=== PATIENT | male | born 1950 | race Caucasian/White ===

== ENCOUNTER 2017-10-28 14:31 | Emergency (ER) | payer MEDICARE, OTHER ==
[~2017-10-28] VITALS: Ht 193 cm; Wt 93.0 kg
[~2017-10-28 14:31] MED LIST: VALA500
== END 2017-10-28 15:54 | disposition home or self-care (01) ==
LOC: ER 14:31
DX: S61.011A Laceration without foreign body of right thumb without damage to nail, initial encounter (principal); Z87.891 Personal history of nicotine dependence; W26.8XXA Contact with other sharp object(s), not elsewhere classified, initial encounter
CPT/HCPCS: 12002; 90471; 90714; 99283

== ENCOUNTER 2017-12-05 07:15 | Day surgery (SDC) | payer MEDICARE, OTHER ==
[~2017-12-05] VITALS: Ht 185.4 cm; Wt 93.0 kg
[~2017-12-05 07:15] MED LIST changes: +Tylenol325 MG PO; +thyroid med
[2017-12-06 04:10] LABS: BASOPHILS ABSOLUTE AUTO 0.01 K/mm3 (0.00-0.23); BASOPHILS PERCENT AUTO 0 % (0-2); EOSINOPHILS ABSOLUTE AUTO 0.01 K/mm3 (0.00-0.68); EOSINOPHILS PERCENT AUTO 0 % (0-6); Hematocrit 40.6 % (37.0-53.0); Hemoglobin 14.1 g/dL (13.5-17.5); IMMATURE GRAN ABSOLUTE AUTO 0.05 K/mm3 (0.00-0.10); IMMATURE GRAN PERCENT AUTO 0 % (0-1); LYMPHOCYTES ABSOLUTE AUTO 1.31 K/mm3 (0.84-5.20); LYMPHOCYTES PERCENT AUTO 9 % (21-46); MONOCYTES ABSOLUTE AUTO 1.19 K/mm3 (0.16-1.47); MONOCYTES PERCENT AUTO 8 % (4-13); Mean Corpuscular HGB 29.5 pg (26.0-34.0); Mean Corpuscular HGB Conc 34.7 g/dL (31.5-36.5); Mean Corpuscular Volume 85 fL (80-100); Mean Platelet Volume 9.6 fL (9.1-12.4); NEUTROPHILS PERCENT AUTO 83 % (41-73); Platelet Count 264 K/mm3 (150-400); RDW Coefficient Variation 12.5 % (11.7-14.2); RDW Standard Deviation 38.5 fL (35.1-46.3); Red Blood Cell Count 4.78 M/mm3 (4.30-5.90); White Blood Cell Count 14.67 K/mm3 (4.00-11.30)
[2017-12-06 04:27] LABS: Anion Gap 8 mmol/L (6-16); Blood Urea Nitrogen 19 mg/dL (8-24); CO2, Blood 25 mmol/L (21-32); Calcium, Blood 8.7 mg/dL (8.5-10.1); Chloride, Blood 107 mmol/L (98-108); Glomerular Filtration Rate >60 (60-); Glucose, Blood 127 mg/dL (70-99); Magnesium, Blood 2.2 mg/dL (1.6-2.4); Potassium, Blood 4.4 mmol/L (3.5-5.5); Sodium, Blood 140 mmol/L (136-145)
[2017-12-06] MEDS ORDERED: ASPI325EC PO (09:23)
[2017-12-06] MEDS ORDERED: ROXICODONE5 MG PO (09:24)
== END 2017-12-06 11:45 | disposition home or self-care (01) ==
LOC: PRE IP 07:15 → ORSCMMR 07:15 → SURS 07:15 → PRE IP 10:30 → SURS 13:12 → PRE IP 14:00 → EDSTATUS 14:00 → SURS 12-06 11:45 → ORSCMMR 12-06 11:45
PROVIDERS: Orthopaedic Surgery
PROC: 0SRC0J9 Replacement of Right Knee Joint with Synthetic Substitute, Cemented, Open Approach (ICD-10-PCS; principal; 2017-12-06)
DX: M17.11 Unilateral primary osteoarthritis, right knee (principal)
CPT/HCPCS: 36415; 73560-RT; 80048; 83735; 85025; 88300; 97110; 97116; 97161; 97530; C1713; C1776; G8978; G8979; J0171; J0690; J0735; J1100; J1885; J2250; J2405; J2795; J7120

== ENCOUNTER 2018-02-13 08:21 | Emergency (ER) | payer MEDICARE, OTHER ==
[~2018-02-13] VITALS: Ht 188 cm; Wt 86.2 kg
[~2018-02-13 08:21] MED LIST changes: +ASPI325EC PO; +ROXICODONE5 MG PO
[2018-02-13 09:08] LABS: BASOPHILS ABSOLUTE AUTO 0.03 K/mm3 (0.00-0.23); BASOPHILS PERCENT AUTO 0 % (0-2); EOSINOPHILS ABSOLUTE AUTO 0.22 K/mm3 (0.00-0.68); EOSINOPHILS PERCENT AUTO 3 % (0-6); Hematocrit 43.9 % (37.0-53.0); IMMATURE GRAN ABSOLUTE AUTO 0.03 K/mm3 (0.00-0.10); IMMATURE GRAN PERCENT AUTO 0 % (0-1); LYMPHOCYTES ABSOLUTE AUTO 1.98 K/mm3 (0.84-5.20); LYMPHOCYTES PERCENT AUTO 23 % (21-46); MONOCYTES PERCENT AUTO 14 % (4-13); Mean Corpuscular HGB 29.4 pg (26.0-34.0); Mean Corpuscular HGB Conc 34.2 g/dL (31.5-36.5); Mean Corpuscular Volume 86 fL (80-100); Mean Platelet Volume 9.1 fL (9.1-12.4); NEUTROPHILS ABSOLUTE AUTO 5.02 K/mm3 (1.96-9.15); NEUTROPHILS PERCENT AUTO 59 % (41-73); Platelet Count 309 K/mm3 (150-400); RDW Coefficient Variation 13.1 % (11.7-14.2); RDW Standard Deviation 41.1 fL (35.1-46.3); Red Blood Cell Count 5.11 M/mm3 (4.30-5.90); White Blood Cell Count 8.48 K/mm3 (4.00-11.30)
[2018-02-13 09:22] LABS: Alanine Aminotransfer (ALT/SGP 62 U/L (12-78); Albumin/Globulin Ratio 1.2 (0.8-1.8); Alk Phos 65 U/L (50-136); Anion Gap 10 mmol/L (6-16); Aspartate Aminotrans (AST/SGOT 36 U/L (12-37); Bilirubin, Total 0.5 mg/dL (0.1-1.0); Blood Urea Nitrogen 25 mg/dL (8-24); Bun/Creatinine Ratio 27.6 (12.0-20.0); CO2, Blood 24 mmol/L (21-32); Calcium, Blood 8.9 mg/dL (8.5-10.1); Chloride, Blood 108 mmol/L (98-108); Creatinine, Blood 0.91 mg/dL (0.60-1.20); Globulin, Blood 3.2 g/dL (2.2-4.0); Glomerular Filtration Rate >60 (60-); Glucose, Blood 110 mg/dL (70-99); Magnesium, Blood 2.1 mg/dL (1.6-2.4); Potassium, Blood 3.7 mmol/L (3.5-5.5); Sodium, Blood 142 mmol/L (136-145); Total Protein, Blood 7.2 g/dL (6.4-8.2); Troponin I 0.018 ng/mL (0.000-0.040)
[2018-02-13 09:26] LABS: Thyroid Stimulating Hormone <0.005 uIU/mL (0.360-4.800)
[2018-02-13 11:43] LABS: Free Thyroxine 1.71 ng/dL (0.70-1.60)
== END 2018-02-13 14:27 | disposition home or self-care (01) ==
LOC: ER 08:21
PROVIDERS: Emergency Medicine
DX: I48.91 Unspecified atrial fibrillation (principal); E05.90 Thyrotoxicosis, unspecified without thyrotoxic crisis or storm; Z79.82 Long term (current) use of aspirin; Z87.891 Personal history of nicotine dependence
CPT/HCPCS: 36415; 71046; 80053; 83735; 83880; 84439; 84443; 84484; 85025; 92960; 93005; 93010; 93306; 96360; 96361; 99285-25; J7120

== ENCOUNTER 2019-12-28 12:47 | Emergency (ER) | payer MEDICARE, OTHER ==
[~2019-12-28] VITALS: Ht 188 cm; Wt 94.8 kg
[2019-12-28] MEDS ORDERED: LIDO700A20 TOP (15:07)
[2019-12-28] MEDS ORDERED: Robaxin-750750 MG PO (15:07)
== END 2019-12-28 13:39 | disposition left against medical advice (07) ==
LOC: ER 12:47
DX: Z53.21 Procedure and treatment not carried out due to patient leaving prior to being seen by health care provider (principal)

== ENCOUNTER 2019-12-28 14:24 | Emergency (ER) | payer MEDICARE, OTHER ==
[~2019-12-28] VITALS: Ht 188 cm; Wt 94.8 kg
[2019-12-28] MEDS ORDERED: Robaxin-750750 MG PO (15:07)
[2019-12-28] MEDS ORDERED: LIDO700A20 TOP (15:07)
== END 2019-12-28 16:02 | disposition home or self-care (01) ==
LOC: ER 14:24
DX: S39.012A Strain of muscle, fascia and tendon of lower back, initial encounter (principal); X58.XXXA Exposure to other specified factors, initial encounter; Y93.89 Activity, other specified
CPT/HCPCS: 96372; 99283-25; J1885

== ENCOUNTER 2020-03-27 07:28 | Day surgery (SDC) | payer MEDICARE, OTHER ==
[~2020-03-27] VITALS: Ht 188 cm; Wt 92.5 kg
[~2020-03-27 07:28] MED LIST changes: +ACET325; +ACYC400; +FLUT.05NI; +KELP150 MC1; +LIDO700A20 TOP; +Robaxin-750750 MG PO; +Saw Palmetto160 MG; +TUMERIC
== END 2020-03-27 10:15 | disposition home or self-care (01) ==
LOC: ORSCSDS 07:28
PROVIDERS: Anesthesiology
PROC: 3E0R33Z Introduction of Anti-inflammatory into Spinal Canal, Percutaneous Approach (ICD-10-PCS; principal; 2020-03-27 08:30)
DX: M51.16 Intervertebral disc disorders with radiculopathy, lumbar region (principal); I48.0 Paroxysmal atrial fibrillation; Z87.891 Personal history of nicotine dependence; Z79.899 Other long term (current) drug therapy
CPT/HCPCS: J1040

== ENCOUNTER 2020-05-28 09:57 | Day surgery (SDC) | payer MEDICARE, OTHER ==
[~2020-05-28] VITALS: Ht 188 cm; Wt 95.1 kg
[~2020-05-28 09:57] MED LIST changes: +TUMERIC PO
== END 2020-05-28 11:30 | disposition home or self-care (01) ==
LOC: ORSCSDS 09:57
PROVIDERS: Anesthesiology
PROC: 3E0R33Z Introduction of Anti-inflammatory into Spinal Canal, Percutaneous Approach (ICD-10-PCS; principal; 2020-05-28 11:00)
DX: M51.16 Intervertebral disc disorders with radiculopathy, lumbar region (principal); I48.0 Paroxysmal atrial fibrillation; Z79.899 Other long term (current) drug therapy
CPT/HCPCS: J1040

== ENCOUNTER 2020-07-10 10:39 | Day surgery (SDC) | payer MEDICARE, OTHER ==
[~2020-07-10] VITALS: Ht 185.4 cm; Wt 93.0 kg
[2020-07-10] MEDS ORDERED: FLUT.05NI (11:01)
[2020-07-10] MEDS ORDERED: ACYC800 PO (11:01)
== END 2020-07-10 11:50 | disposition home or self-care (01) ==
LOC: ORSCSDS 10:39
PROVIDERS: Anesthesiology
PROC: 3E0R33Z Introduction of Anti-inflammatory into Spinal Canal, Percutaneous Approach (ICD-10-PCS; principal; 2020-07-10 11:45)
DX: M51.16 Intervertebral disc disorders with radiculopathy, lumbar region (principal); M48.061 Spinal stenosis, lumbar region without neurogenic claudication; I48.0 Paroxysmal atrial fibrillation
CPT/HCPCS: J1040

== ENCOUNTER 2021-01-24 03:18 | Emergency (ER) | payer MEDICARE, OTHER ==
[~2021-01-24] VITALS: Ht 188 cm; Wt 93.0 kg
[~2021-01-24 03:18] MED LIST changes: +ACYC800 PO
[2021-01-24 03:49] LABS: BASOPHILS ABSOLUTE AUTO 0.01 K/mm3 (0.00-0.23); BASOPHILS PERCENT AUTO 0 % (0-2); EOSINOPHILS ABSOLUTE AUTO 0.01 K/mm3 (0.00-0.68); EOSINOPHILS PERCENT AUTO 0 % (0-6); Hematocrit 46.4 % (37.0-53.0); Hemoglobin 15.7 g/dL (13.5-17.5); IMMATURE GRAN ABSOLUTE AUTO 0.04 K/mm3 (0.00-0.10); IMMATURE GRAN PERCENT AUTO 0 % (0-1); LYMPHOCYTES ABSOLUTE AUTO 2.24 K/mm3 (0.84-5.20); LYMPHOCYTES PERCENT AUTO 19 % (21-46); MONOCYTES ABSOLUTE AUTO 0.77 K/mm3 (0.16-1.47); MONOCYTES PERCENT AUTO 7 % (4-13); Mean Corpuscular HGB 29.5 pg (26.0-34.0); Mean Corpuscular HGB Conc 33.8 g/dL (31.5-36.5); Mean Corpuscular Volume 87 fL (80-100); Mean Platelet Volume 9.9 fL (9.1-12.4); NEUTROPHILS ABSOLUTE AUTO 8.82 K/mm3 (1.96-9.15); NEUTROPHILS PERCENT AUTO 74 % (41-73); Platelet Count 291 K/mm3 (150-400); RDW Coefficient Variation 13.6 % (11.7-14.2); RDW Standard Deviation 43.4 fL (35.1-46.3); Red Blood Cell Count 5.33 M/mm3 (4.30-5.90); White Blood Cell Count 11.89 K/mm3 (4.00-11.30)
[2021-01-24 04:01] LABS: Alanine Aminotransfer (ALT/SGP 31 U/L (12-78); Albumin, Blood 4.1 g/dL (3.4-5.0); Albumin/Globulin Ratio 1.4 (0.8-1.8); Alk Phos 91 U/L (50-136); Anion Gap 6 mmol/L (6-16); Aspartate Aminotrans (AST/SGOT 25 U/L (12-37); Bilirubin, Total 0.3 mg/dL (0.1-1.0); Blood Urea Nitrogen 21 mg/dL (8-24); Bun/Creatinine Ratio 19.4 (12.0-20.0); CO2, Blood 26 mmol/L (21-32); Calcium, Blood 8.6 mg/dL (8.5-10.1); Chloride, Blood 108 mmol/L (98-108); Creatinine, Blood 1.08 mg/dL (0.60-1.20); Glomerular Filtration Rate >60 (60-); Glucose, Blood 100 mg/dL (70-99); Potassium, Blood 4.3 mmol/L (3.5-5.5); Sodium, Blood 140 mmol/L (136-145); Total Protein, Blood 7.1 g/dL (6.4-8.2); Troponin I <0.015 ng/mL (0.000-0.040)
[2021-02-09] MEDS ORDERED: TURMERIC500 M2 PO (12:42)
== END 2021-01-24 04:27 | disposition home or self-care (01) ==
LOC: ER 03:18
PROVIDERS: Student in an Organized Health Care Education/Training Program
DX: I48.91 Unspecified atrial fibrillation (principal); Z87.891 Personal history of nicotine dependence
CPT/HCPCS: 36415; 80053; 84484; 85025; 93005; 93010; 99285-25

== ENCOUNTER 2021-02-18 11:09 | Day surgery (SDC) | payer MEDICARE, OTHER | END 2021-02-18 12:40 | disposition home or self-care (01) | LOC: ORSCSDS 11:09 | PROC: 3E0R33Z Introduction of Anti-inflammatory into Spinal Canal, Percutaneous Approach (ICD-10-PCS; principal; 2021-02-18) | DX: M54.12 Radiculopathy, cervical region (principal); I48.0 Paroxysmal atrial fibrillation; Z79.899 Other long term (current) drug therapy ==

== ENCOUNTER 2021-07-15 13:17 | Day surgery (SDC) | payer MEDICARE, OTHER ==
[~2021-07-15] VITALS: Ht 188 cm; Wt 91.3 kg
[~2021-07-15 13:17] MED LIST changes: +TURMERIC500 M2 PO
[2021-07-15] MEDS ORDERED: ACYC400 PO (13:41)
== END 2021-07-15 14:48 | disposition home or self-care (01) ==
LOC: ORSCSDS 13:17
PROVIDERS: Anesthesiology
PROC: 3E0R33Z Introduction of Anti-inflammatory into Spinal Canal, Percutaneous Approach (ICD-10-PCS; principal; 2021-07-15 14:00)
DX: M50.123 Cervical disc disorder at C6-C7 level with radiculopathy (principal); I48.0 Paroxysmal atrial fibrillation; Z79.899 Other long term (current) drug therapy
CPT/HCPCS: J1040; J2250; J2704; J3010

== ENCOUNTER 2021-12-10 10:40 | Day surgery (SDC) | payer MEDICARE, OTHER ==
[~2021-12-10] VITALS: Ht 188 cm; Wt 90.8 kg
[~2021-12-10 10:40] MED LIST changes: +ACYC400 PO
--- NOTE | 2021-12-10 12:50 | NUR ---
12/10/21 1250 Pallavi Gordon 57, 100, 110/63 59, 100, 81/52 VSS T/O CASE. PATIENT ALERT, CONVERSIVE. PT TAKEN TO SDU WITHOUT S/S DISTRESS. NO COMPLAINTS. A/A/O
--- NOTE | 2021-12-10 13:25 | NUR ---
12/10/21 7175 Anali Ontiveros DISCHARGE INSTRUCTIONS REVIEWED WITH PT. PT DENIES AND PAIN OR NAUSEA. TOLERATING PO FLUIDS WELL. VSS.
== END 2021-12-10 13:25 | disposition home or self-care (01) ==
LOC: ORSCSDS 10:40
PROVIDERS: Anesthesiology
PROC: 3E0R33Z Introduction of Anti-inflammatory into Spinal Canal, Percutaneous Approach (ICD-10-PCS; principal; 2021-12-10 12:00)
DX: M50.123 Cervical disc disorder at C6-C7 level with radiculopathy (principal); I48.0 Paroxysmal atrial fibrillation; Z79.899 Other long term (current) drug therapy
CPT/HCPCS: J1040; J2250; J3010; J7040

== ENCOUNTER 2022-02-15 10:58 | Day surgery (SDC) | payer MEDICARE, OTHER ==
[~2022-02-15] VITALS: Ht 188 cm; Wt 94.0 kg
== END 2022-02-15 12:10 | disposition home or self-care (01) ==
LOC: ORSCSDS 10:58
PROVIDERS: Anesthesiology
PROC: 3E0R33Z Introduction of Anti-inflammatory into Spinal Canal, Percutaneous Approach (ICD-10-PCS; principal; 2022-02-15 12:00)
DX: M96.1 Postlaminectomy syndrome, not elsewhere classified (principal); M50.10 Cervical disc disorder with radiculopathy, unspecified cervical region; I48.91 Unspecified atrial fibrillation; F17.210 Nicotine dependence, cigarettes, uncomplicated
CPT/HCPCS: J1040